=== PATIENT | female | born 1950 | race Hispanic/Latino ===

== ENCOUNTER 2018-08-30 05:44 | Observation (INO) | payer MEDICARE ==
[2018-08-28 12:22] LABS: BASOPHILS % (AUTO) 0.6 % (0.0-5.0); EOSINOPHILS % (AUTO) 2.4 % (0.0-8.0); HEMATOCRIT 40.8 % (36-48); LYMPHOCYTES % (AUTO) 20.7 % (21.0-51.0); MEAN CORPUSCULAR HEMOGLOBIN 29.4 pg (27.0-33.0); MEAN CORPUSCULAR HGB CONC 32.8 g/dL (32.0-36.0); MEAN CORPUSCULAR VOLUME 89.7 fL (79-99); MONOCYTES % (AUTO) 6.1 % (3.0-13.0); NEUTROPHILS % (AUTO) 70.2 % (40.0-77.0); PLATELET COUNT (AUTO) 237 K/uL (130-400); RED BLOOD CELL COUNT(AUTO) 4.55 MIL/uL (4.00-5.50); RED CELL DISTRIBUTION WIDTH 15.2 % (11.0-15.5); WHITE BLOOD COUNT (AUTO) 7.7 K/uL (4.8-10.8)
[2018-08-28 12:31] VITALS: BP 133/58
[2018-08-28 12:31] LABS: APPEARANCE,URINE Clear (CLEAR); BILIRUBIN,URINE Negative (NEGATIVE); COLOR,URINE Yellow (YELLOW); GLUCOSE, URINE (UA) >=1000 mg/dL (NEGATIVE); KETONES,URINE Negative (NEGATIVE); LEUKOCYTE ESTERASE ,URINE Negative (NEGATIVE); NITRATE,URINE Negative (NEGATIVE); OCCULT BLOOD,URINE Negative (NEGATIVE); PH,URINE 5.5 (5.0-8.0); PROTEIN,URINE Negative (NEGATIVE)
[2018-08-28 12:31] LABS: CREATININE 1.1 mg/dL (0.5-1.5); POTASSIUM 4.4 mmol/L (3.5-5.1)
[2018-08-28 12:33] LABS: INR 0.98 (0.85-1.15); PARTIAL THROMBOPLASTIN TIME 27.3 SEC (26.3-35.5); PROTHROMBIN TIME 10.3 SEC (9.6-11.6)
[2018-08-28 12:47] LABS: BACTERIA,URINE Rare /HPF (None Seen); RBC,URINE 0-1 /HPF (0-1); SQUAMOUS EPITHELIAL CELL,UR Rare /HPF (0-2)
--- NOTE | 2018-08-29 10:39 | NUR ---
NOTIFY CHEST X RAY RESULT REPORTED TO LUCIA STANLEY. NO FURTHER ORDERS GIVEN. OKAY TO PROCEED WITH PLANNED PROCEDURE.
[2018-08-30] VITALS (12 sets, daily range): BP systolic 104–127; BP diastolic 53–86
[~2018-08-30] VITALS: Ht 154.9 cm; Wt 116.3 kg
[~2018-08-30 05:44] MED LIST: ACETAMINOPHEN 325 MG TAB PO PRN; ASPI-555 PO; ATOR40TA71 PO; CANA300T PO; CYCL10TA7 PO; EXEN2PEN SQ; FURO40TA5 PO; INSU200I4 SQ; LINA5TAB PO; LOSA25TA41 PO; METF-446 PO; METO25TA6 PO; PIOG45TA64 PO; SODIUM CHLORIDE 0.9% 500ML 500 ML IV SCH; SPIR25TA6 PO
[2018-08-30] MEDS ORDERED: SODIUM CHLORIDE 0.9% 1000ML 1,000 ML IV ONE (06:11)
--- NOTE | 2018-08-30 07:20 | NUR ---
BSFS HARI MYERS NOTIFIED OF BS AND PT HAD TAKEN METFORMIN YESTERDAY MORNING AT 1030,,ORDER GIVEN
[2018-08-30] MEDS: INSULIN HUMULIN R 100 UNIT/ML 3ML SQ SCH ×6 (07:42→22:36)
--- NOTE | 2018-08-30 07:42 | NUR ---
ADMINISTERED INSULIN ORDERED
[2018-08-30] MEDS ORDERED: SODIUM BICARB 50MEQ 50ML VIAL ONE (11:13)
[2018-08-30] MEDS ORDERED: LIDOCAINE HCL 1% 20 ML VIAL ONE (11:13)
[2018-08-30] MEDS ORDERED: HEPARIN SODIUM 1000UNIT/ML 10ML VIAL ONE (11:14)
[2018-08-30] MEDS ORDERED: NITROGLYCERIN 5 MG/ML 10 ML VIAL IV ONE (11:14)
[2018-08-30] MEDS ORDERED: IODIXANOL 320 MG/ML 100 ML VIAL ONE ×2 (11:14→13:02)
[2018-08-30] MEDS ORDERED: MEPERIDINE-PF 25 MG/ML SYG ONE (13:27)
[2018-08-30] MEDS ORDERED: GLUCAGON 1MG KIT 1 MG ML IM PRN (14:00)
[2018-08-30] MEDS ORDERED: DEXTROSE 50%-WATER 50 ML DISP.SYRIN IV PRN (14:00)
[2018-08-30] MEDS ORDERED: CYCLOBENZAPRINE HCL 10 MG TABLET PO PRN (14:00)
[2018-08-30] MEDS ORDERED: ACETAMINOPHEN-CODEINE 300/30MG TAB PO PRN ×2 (14:00)
[2018-08-30] MEDS ORDERED: ONDANSETRON HCL 4 MG/2 ML VIAL IVP PRN (14:00)
[2018-08-30] MEDS ORDERED: INSULIN DEGLUDEC 200 UNIT SQ SCH (21:00)
[2018-08-30] MEDS ORDERED: ATORVASTATIN CALCIUM 40 MG TABLET PO SCH (21:00)
[2018-08-30] MEDS ORDERED: METOPROLOL TARTRATE 25 MG TAB PO SCH (21:00)
[2018-08-31 03:00] VITALS: BP 120/61
[2018-08-31 03:37] LABS: HEMATOCRIT 37.1 % (36-48); MEAN CORPUSCULAR HEMOGLOBIN 29.3 pg (27.0-33.0); MEAN CORPUSCULAR HGB CONC 32.7 g/dL (32.0-36.0); MEAN CORPUSCULAR VOLUME 89.5 fL (79-99); PLATELET COUNT (AUTO) 219 K/uL (130-400); RED BLOOD CELL COUNT(AUTO) 4.14 MIL/uL (4.00-5.50); RED CELL DISTRIBUTION WIDTH 15.5 % (11.0-15.5); WHITE BLOOD COUNT (AUTO) 8.2 K/uL (4.8-10.8)
[2018-08-31 03:46] LABS: CREATININE 1.2 mg/dL (0.5-1.5); POTASSIUM 3.9 mmol/L (3.5-5.1)
--- NOTE | 2018-08-31 04:00 | NUR ---
Notified Manjinder Salter of admission. Hospitalist group not notified during day shift
[2018-08-31 04:58] LABS: EOSINOPHILS % (AUTO) 1.2 % (0.0-8.0); LYMPHOCYTES % (AUTO) 15.4 % (21.0-51.0); MONOCYTES % (AUTO) 7.1 % (3.0-13.0); NEUTROPHILS % (AUTO) 75.3 % (40.0-77.0)
[2018-08-31 05:11] LABS: ALBUMIN 3.2 g/dL (3.5-5.0); BILIRUBIN,TOTAL 0.3 mg/dL (0.2-1.0); TOTAL PROTEIN, SERUM 7.4 g/dL (6.0-8.3)
--- NOTE | 2018-08-31 05:16 | NUR ---
Patient resting in bed. No s/s of bleeding to R groin. Groin soft. Patient denies pain. Ambulated to restroom. Steady gait.
[2018-08-31 05:51] LABS: INR 1.02 (0.85-1.15); PARTIAL THROMBOPLASTIN TIME 28.1 SEC (26.3-35.5); PROTHROMBIN TIME 10.7 SEC (9.6-11.6)
[2018-08-31] MEDS: INSULIN HUMULIN R 100 UNIT/ML 3ML SQ SCH ×2 (06:18→07:30)
[2018-08-31 08:11] VITALS: BP 126/62
[2018-08-31] MEDS ORDERED: LINAGLIPTIN 5 MG TABLET PO SCH (09:00)
[2018-08-31] MEDS ORDERED: PIOGLITAZONE HCL 45 MG TAB PO SCH (09:00)
[2018-08-31] MEDS ORDERED: LOSARTAN 50 MG TABLET PO SCH (09:00)
[2018-08-31] MEDS ORDERED: FUROSEMIDE 40 MG TABLET PO SCH (09:00)
[2018-08-31] MEDS ORDERED: CANAGLIFLOZIN 300 MG PO SCH (09:00)
[2018-08-31] MEDS ORDERED: ASPIRIN 81MG TAB.CHEW PO SCH (09:00)
[2018-08-31] MEDS ORDERED: SPIRONOLACTONE 25 MG TAB PO SCH (09:00)
[2018-09-04] MEDS ORDERED: EXENATIDE MICROSPHERES 2 MG SQ SCH (21:00)
== END 2018-08-31 11:06 | disposition home or self-care (01) ==
LOC: DAH 05:44 → 2DH 05:45
PROVIDERS: ADMIT Internal Medicine; ATTEND Internal Medicine
DX: I72.8 Aneurysm of other specified arteries (principal); E03.9 Hypothyroidism, unspecified; Q25.5 Atresia of pulmonary artery; E11.9 Type 2 diabetes mellitus without complications; E66.01 Morbid (severe) obesity due to excess calories; E78.5 Hyperlipidemia, unspecified; I11.0 Hypertensive heart disease with heart failure; I50.9 Heart failure, unspecified; I25.2 Old myocardial infarction; I25.5 Ischemic cardiomyopathy; I25.10 Atherosclerotic heart disease of native coronary artery without angina pectoris
CPT/HCPCS: 36246; 36415 ×3; 37236; 37242; 71045; 75726; 75774; 80048; 80053; 81001; 82948 ×4; 85025 ×2; 85347; 85610 ×2; 85730 ×2; 93005; 96372 ×2; A4606; C1725; C1760; C1769 ×7; C1876; C1887 ×3; C1894 ×2; G0378 ×29; J1644 ×3; J1815 ×2; J2175; J3490 ×2; J7030; Q9967 ×2; 36245

== ENCOUNTER 2018-11-22 05:51 | Day surgery (SDC) | payer MEDICARE ==
[2018-11-20 09:42] VITALS: BP 142/78
[2018-11-20 10:09] LABS: BASOPHILS % (AUTO) 0.4 % (0.0-5.0); EOSINOPHILS % (AUTO) 1.4 % (0.0-8.0); HEMATOCRIT 39.3 % (36-48); MEAN CORPUSCULAR HEMOGLOBIN 29.7 pg (27.0-33.0); MEAN CORPUSCULAR HGB CONC 33.3 g/dL (32.0-36.0); MEAN CORPUSCULAR VOLUME 89.3 fL (79-99); MONOCYTES % (AUTO) 4.6 % (3.0-13.0); NEUTROPHILS % (AUTO) 80.6 % (40.0-77.0); NUCLEATED RED BLOOD CELLS 0.1 % (0.0-0.19); PLATELET COUNT (AUTO) 245 K/uL (130-400); WHITE BLOOD COUNT (AUTO) 9.2 K/uL (4.8-10.8)
[2018-11-20 10:17] LABS: APPEARANCE,URINE Clear (CLEAR); BILIRUBIN,URINE Negative (NEGATIVE); COLOR,URINE Yellow (YELLOW); GLUCOSE, URINE (UA) >=1000 mg/dL (NEGATIVE); KETONES,URINE Negative (NEGATIVE); LEUKOCYTE ESTERASE ,URINE Trace (NEGATIVE); NITRATE,URINE Negative (NEGATIVE); OCCULT BLOOD,URINE Negative (NEGATIVE); PROTEIN,URINE Negative (NEGATIVE); UROBILINOGEN,URINE 0.2 mg/dL (0.2-1.0)
[2018-11-20 10:20] LABS: CREATININE 1.1 mg/dL (0.5-1.5); POTASSIUM 4.3 mmol/L (3.5-5.1)
[2018-11-20 10:22] LABS: BACTERIA,URINE Few /HPF (None Seen); RBC,URINE None Seen /HPF (0-1); SQUAMOUS EPITHELIAL CELL,UR Few /HPF (0-2)
[2018-11-20 10:23] LABS: INR 0.97 (0.85-1.15); PARTIAL THROMBOPLASTIN TIME 26.4 SEC (26.3-35.5); PROTHROMBIN TIME 10.2 SEC (9.6-11.6)
--- NOTE | 2018-11-21 10:14 | NUR ---
ABNORMAL NA, BLOOD GLUCOSE, BUN,CL, AND UA REPORTED TO HARI MYERS, NO NEW ORDERS PROCEED WITH PROCEDURE.
[~2018-11-22] VITALS: Ht 156.2 cm; Wt 115.4 kg
[2018-11-22] VITALS (12 sets, daily range): BP systolic 100–124; BP diastolic 50–65
[~2018-11-22 05:51] MED LIST changes: -ACETAMINOPHEN 325 MG TAB PO PRN; -ASPI-555 PO; -CYCL10TA7 PO; -INSU200I4 SQ; +LEVO50TA11 PO; -PIOG45TA64 PO; +TRESIBA FLEXTOUCH SQ
[2018-11-22] MEDS ORDERED: SODIUM CHLORIDE 0.9% 1000ML 1,000 ML IV ONE (06:41)
--- NOTE | 2018-11-22 07:10 | NUR ---
ELEVATED BLOOD SUGAR CALL BACK FROM LUCIA STANLEY, NOTIFIED PT'S BLOOD SUGAR 331, PT DID NOT INJECT TRESIBA LAST NIGHT. ORDERED REGULAR INSULIN SLIDING SCALE 1/2 SCALE.
[2018-11-22] MEDS ORDERED: BYDUREON SQ (07:11)
[2018-11-22] MEDS ORDERED: INSULIN HUMULIN R 100 UNIT/ML 3ML ONE ×2 (07:21→08:30)
[2018-11-22] MEDS ORDERED: INSULIN HUMULIN R 100 UNIT/ML 3ML IV SCH (08:27)
--- NOTE | 2018-11-22 08:27 | NUR ---
BLOOD SUGAR AT 0809 BLOOD SUGAR RECHECKED- 303. REPORTED TO DR. ROSALES. ORDERED TO GIVE 5 UNITS OF REGULAR INSULIN IV NOW AND RECHECK BLOOD SUGAR PRIOR TO GOING TO [facility].
[2018-11-22] MEDS ORDERED: SODIUM BICARB 50MEQ 50ML VIAL ONE (08:47)
[2018-11-22] MEDS ORDERED: NITROGLYCERIN 5 MG/ML 10 ML VIAL IV ONE (08:47)
[2018-11-22] MEDS ORDERED: HEPARIN SODIUM 1000UNIT/ML 10ML VIAL ONE (08:47)
[2018-11-22] MEDS ORDERED: LIDOCAINE HCL 2% 20ML ONE (08:48)
[2018-11-22] MEDS ORDERED: IODIXANOL 320 MG/ML 100 ML VIAL ONE ×2 (08:48→10:44)
--- NOTE | 2018-11-22 09:09 | NUR ---
TO DIRECTOR EMERGENCY DEPARTMENT PT TAKEN TO DIRECTOR EMERGENCY DEPARTMENT VIA BED BY MISTY CONLEY. PT FAISAL.
[2018-11-22] MEDS ORDERED: MEPERIDINE-PF 25 MG/ML SYG ONE ×2 (09:44→10:55)
[2018-11-22] MEDS ORDERED: MIDAZOLAM HCL 1 MG/ML 2ML VIAL ONE ×2 (09:44→10:55)
[2018-11-22] MEDS ORDERED: CEFAZOLIN SODIUM 1 GM VIAL ONE (11:41)
[2018-11-22] MEDS ORDERED: INSULIN HUMULIN R 100 UNIT/ML 3ML SQ SCH ×2 (12:00→16:30)
[2018-11-22] MEDS ORDERED: CLOPIDOGREL BISULFATE 300 MG TAB ONE (12:21)
[2018-11-22] MEDS ORDERED: ASPIRIN 325MG EC TAB 325 MG TABLET.DR PO ONE (12:21)
[2018-11-22] MEDS ORDERED: SODIUM CHLORIDE 0.9% 1000ML 1,000 ML IV SCH (12:35)
[2018-11-22] MEDS ORDERED: ACETAMINOPHEN-CODEINE 300/30MG TAB PO PRN ×2 (12:45)
[2018-11-22] MEDS ORDERED: DEXTROSE 50%-WATER 50 ML DISP.SYRIN IV PRN (12:45)
[2018-11-22] MEDS ORDERED: GLUCAGON 1MG KIT 1 MG ML IM PRN (12:45)
--- NOTE | 2018-11-22 14:00 | NUR ---
DIET PT TOLERATING DIET WELL. MISTY DEE ASSISTING IN FEEDING PT.
--- NOTE | 2018-11-22 16:15 | NUR ---
INSTRUCTIONS DISCHARGE INSTRUCTIONS GIVEN TO DAUGHTER AND PT. ALSO INSTRUCTED AND DEMONSTRATED TO DAUGHTER ON HOW TO MONITOR CATH SITE FOR BLEEDING, HEMATOMA. VERBALIZED UNDERSTANDING. RX FOR ASA AND PLAVIX GIVEN TO DAUGHTER, INSTRUCTED FOR PT TO START TOMORROW. HOLD METFORMIN FOR 48 HRS. VERBALIZED UNDERSTANDING.
--- NOTE | 2018-11-22 16:35 | NUR ---
REPORT PT RESTING IN BED. RE-INSTRUCTED ON IMPORTANCE OF NOT MOVING RIGHT LEG AND LIFTING HEAD. VERBALIZED UNDERSTANDING.
--- NOTE | 2018-11-22 16:35 | NUR ---
REPORT REPORT GIVEN TO MISTY ALSTON. PT SUPINE ON BED, NOT IN ANY APPARENT DISTRESS. NO COMPLAINTS MADE. CATH SITE TO RIGHT GROIN SOFT, DRESSING REMAINS DRY AND INTACT, NO OOZING NO HEMATOMA NOTED. PT ASSISTED TO BEDPAN, WILL CALL ONCE VOIDED.
--- NOTE | 2018-11-22 18:30 | NUR ---
DISCHARGE PT DISCHARGED VIA WHEELCHAIR. SITE SOFT TO TOUCH. NO BLEEDING , OOZING NOTED. RE-INSTRUCTED DAUGHTER ON IMPORTANCE OF MONITORING SITE FOR ANY BLEEDING, FIRMNESS TO SITE. VERBALIZED UNDERSTANDING.
== END 2018-11-22 18:30 | disposition home or self-care (01) ==
LOC: DAH 05:51
PROVIDERS: ATTEND Internal Medicine Cardiovascular Disease
DX: I72.8 Aneurysm of other specified arteries (principal); I25.10 Atherosclerotic heart disease of native coronary artery without angina pectoris; I21.3 ST elevation (STEMI) myocardial infarction of unspecified site; I25.5 Ischemic cardiomyopathy; E66.01 Morbid (severe) obesity due to excess calories; E78.00 Pure hypercholesterolemia, unspecified; E11.9 Type 2 diabetes mellitus without complications; I11.0 Hypertensive heart disease with heart failure; I50.9 Heart failure, unspecified; Z95.5 Presence of coronary angioplasty implant and graft; Z98.890 Other specified postprocedural states; Z79.84 Long term (current) use of oral hypoglycemic drugs; Z79.899 Other long term (current) drug therapy
CPT/HCPCS: 36246; 36415 ×2; 37236; 37242; 71045; 75726; 75774; 80048; 81001; 82948 ×4; 85025; 85347 ×3; 85610; 85730; 93005; A4606; C1725 ×2; C1760 ×2; C1769 ×6; C1770 ×3; C1874 ×2; C1887 ×4; C1893; C1894 ×2; J0690; J1644 ×3; J1815 ×3; J2175 ×2; J2250 ×2; J3490 ×3; J7030; Q9967 ×2; 99156; 99157

== ENCOUNTER → 2019-03-19 | Outpatient (CLI) | payer MEDICARE ==
[~2019-03-19] MED LIST changes: +BYDUREON SQ; -EXEN2PEN SQ; +IOHEXOL 350 MG/ML 100ML INFUS..BTL IV ONE; -SODIUM CHLORIDE 0.9% 500ML 500 ML IV SCH
== END | disposition home or self-care (01) ==
LOC: RAH 08:46
PROVIDERS: ATTEND Internal Medicine Cardiovascular Disease
DX: I72.8 Aneurysm of other specified arteries (principal); I25.10 Atherosclerotic heart disease of native coronary artery without angina pectoris; K76.0 Fatty (change of) liver, not elsewhere classified; K57.90 Diverticulosis of intestine, part unspecified, without perforation or abscess without bleeding; N32.89 Other specified disorders of bladder; N85.2 Hypertrophy of uterus; M47.815 Spondylosis without myelopathy or radiculopathy, thoracolumbar region
CPT/HCPCS: 74174; Q9967